=== PATIENT | female | born 1945 | race Caucasian/White ===

== ENCOUNTER 2019-02-10 12:59 | Outpatient (CLI) | payer MEDICARE ==
[2019-02-10 18:11] LABS: HB2 TOTAL 13.5 g/dL; HEMOGLOBIN A1C 0.64 g/dL; HEMOGLOBIN A1C % 6.5 % (4.6-6.2)
== END 2019-02-10 13:00 | disposition home or self-care (01) ==
LOC: LAB.S 12:59
PROVIDERS: ATTEND Family Medicine
DX: E11.9 Type 2 diabetes mellitus without complications (principal); I48.2 Chronic atrial fibrillation
CPT/HCPCS: 36415; 83036; 85610

== ENCOUNTER 2019-02-18 13:05 | Outpatient (CLI) | payer MEDICARE | END 2019-02-18 13:06 | disposition home or self-care (01) | LOC: LAB.S 13:05 | PROVIDERS: ATTEND Family Medicine | DX: E11.9 Type 2 diabetes mellitus without complications (principal); I48.2 Chronic atrial fibrillation | CPT/HCPCS: 36415; 83036; 85610 ==

== ENCOUNTER 2019-03-10 14:22 | Outpatient (CLI) | payer MEDICARE | END 2019-03-10 14:23 | disposition home or self-care (01) | LOC: LAB.S 14:22 | PROVIDERS: ATTEND Family Medicine | DX: I48.20 Chronic atrial fibrillation, unspecified (principal) | CPT/HCPCS: 85610 ==

== ENCOUNTER 2019-03-17 14:56 | Outpatient (CLI) | payer MEDICARE | END 2019-03-17 14:57 | disposition home or self-care (01) | LOC: LAB.S 14:56 | PROVIDERS: ATTEND Family Medicine | DX: I48.20 Chronic atrial fibrillation, unspecified (principal) | CPT/HCPCS: 85610 ==

== ENCOUNTER 2019-03-24 14:42 | Outpatient (CLI) | payer MEDICARE | END 2019-03-24 14:43 | disposition home or self-care (01) | LOC: LAB.S 14:42 | PROVIDERS: ATTEND Family Medicine | DX: I48.91 Unspecified atrial fibrillation (principal) | CPT/HCPCS: 85610 ==

== ENCOUNTER 2019-03-31 13:43 | Outpatient (CLI) | payer MEDICARE | END 2019-03-31 13:44 | disposition home or self-care (01) | LOC: LAB.S 13:43 | PROVIDERS: ATTEND Family Medicine | DX: I48.91 Unspecified atrial fibrillation (principal) | CPT/HCPCS: 85610 ==

== ENCOUNTER 2019-04-07 14:49 | Outpatient (CLI) | payer MEDICARE | END 2019-04-07 14:50 | disposition home or self-care (01) | LOC: LAB.S 14:49 | PROVIDERS: ATTEND Family Medicine | DX: I48.91 Unspecified atrial fibrillation (principal) | CPT/HCPCS: 85610 ==

== ENCOUNTER 2019-04-21 14:31 | Outpatient (CLI) | payer MEDICARE | END 2019-04-21 14:32 | disposition home or self-care (01) | LOC: LAB.S 14:31 | PROVIDERS: ATTEND Family Medicine | DX: I48.91 Unspecified atrial fibrillation (principal) | CPT/HCPCS: 85610 ==

== ENCOUNTER 2019-04-30 09:00 | Outpatient (CLI) | payer MEDICARE | END 2019-04-30 09:01 | disposition home or self-care (01) | LOC: LAB.R 09:00 | PROVIDERS: ATTEND Registered Nurse | DX: Z12.11 Encounter for screening for malignant neoplasm of colon (principal) | CPT/HCPCS: 82270 ==

== ENCOUNTER 2019-05-05 13:54 | Outpatient (CLI) | payer MEDICARE | END 2019-05-05 13:55 | disposition home or self-care (01) | LOC: LAB.S 13:54 | PROVIDERS: ATTEND Family Medicine | DX: I48.91 Unspecified atrial fibrillation (principal) | CPT/HCPCS: 85610 ==

== ENCOUNTER 2019-06-03 13:50 | Outpatient (CLI) | payer MEDICARE | END 2019-06-03 13:51 | disposition home or self-care (01) | LOC: LAB.S 13:50 | PROVIDERS: ATTEND Family Medicine | DX: I48.91 Unspecified atrial fibrillation (principal) | CPT/HCPCS: 85610 ==

== ENCOUNTER 2019-06-16 11:48 | Outpatient (CLI) | payer MEDICARE | END 2019-06-16 11:49 | disposition home or self-care (01) | LOC: LAB.S 11:48 | PROVIDERS: ATTEND Family Medicine | DX: I48.91 Unspecified atrial fibrillation (principal) | CPT/HCPCS: 85610 ==

== ENCOUNTER 2019-06-25 13:40 | Outpatient (CLI) | payer MEDICARE | END 2019-06-25 13:41 | disposition home or self-care (01) | LOC: LAB.S 13:40 | PROVIDERS: ATTEND Family Medicine | DX: I48.91 Unspecified atrial fibrillation (principal) | CPT/HCPCS: 85610 ==

== ENCOUNTER 2019-07-09 14:05 | Outpatient (CLI) | payer MEDICARE | END 2019-07-09 14:06 | disposition home or self-care (01) | LOC: LAB.S 14:05 | PROVIDERS: ATTEND Family Medicine | DX: I48.91 Unspecified atrial fibrillation (principal) | CPT/HCPCS: 85610 ==

== ENCOUNTER 2019-09-02 09:07 | Outpatient (CLI) | payer MEDICARE ==
[2019-09-02 11:55] LABS: BASOPHILS % (AUTO) 0.5 %; EOSINOPHILS # (AUTO) 0.1 10^3/uL (0.0-0.7); EOSINOPHILS % (AUTO) 2.4 %; HGB - HEMOGLOBIN 13.4 g/dL (12.0-16.0); LYMPHOCYTES # (AUTO) 1.3 10^3/uL (1.5-3.5); LYMPHOCYTES % (AUTO) 30.8 %; MEAN CORPUSCULAR HEMOGLOBIN 31.7 pg (27.0-31.0); MEAN CORPUSCULAR HGB CONC 31.8 g/dL (32.0-36.0); MEAN CORPUSCULAR VOLUME 99.8 fL (81.0-99.0); MEAN PLATELET VOLUME 10.2 fL (7.9-10.8); MONOCYTES # (AUTO) 0.5 10^3/uL (0.0-1.0); MONOCYTES % (AUTO) 10.6 %; NEUTROPHILS # (AUTO) 2.4 10^3/uL (1.5-6.6); NEUTROPHILS % (AUTO) 55.5 %; PLT - PLATELET COUNT 225 10^3/uL (130-450); RED BLOOD COUNT 4.23 10^6/uL (4.20-5.40); RED CELL DISTRIBUTION WIDTH 12.7 % (12.0-15.0); WHITE BLOOD COUNT 4.3 x10^3/uL (4.8-10.8)
[2019-09-02 12:10] LABS: HB2 TOTAL 13.5 g/dL; HEMOGLOBIN A1C 0.74 g/dL; HEMOGLOBIN A1C % 7.2 % (4.6-6.2)
[2019-09-02 12:12] LABS: ALBUMIN 4.1 g/dL (3.2-5.5); ALBUMIN/GLOBULIN RATIO 1.2 (1.0-2.2); ALKALINE PHOSPHATASE 58 IU/L (42-121); ALT ALANINE AMINOTRANSFERASE 25 IU/L (10-60); AST ASPARTATE AMINOTRANSFERASE 23 IU/L (10-42); BILIRUBIN,TOTAL 0.7 mg/dL (0.2-1.0); BUN - BLOOD UREA NITROGEN 19 mg/dL (6-20); CALCIUM 9.4 mg/dL (8.5-10.3); CARBON DIOXIDE - CO2 27 mmol/L (21-32); CHLORIDE 106 mmol/L (101-111); CHOL/HDL RATIO 2.9 (<4.4); CHOLESTEROL 134 mg/dL; CREATININE 0.8 mg/dL (0.4-1.0); CREATININE,URINE 163.8 mg/dL; GLUCOSE 126 mg/dL (70-100); HDL CHOLESTEROL 46 mg/dL; LDL CHOLESTEROL,CALCULATED 53 mg/dL; LDL/HDL RATIO 1.2 (<4.4); MICROALBUM/CREATININE RATIO,UR 6.7 ug/mg (<30.0); MICROALBUMIN,URINE 1.1 mg/dL (0-300.0); SODIUM 141 mmol/L (135-145); TOTAL PROTEIN 7.6 g/dL (6.7-8.2); VLDL CHOLESTEROL 35 mg/dL
[2019-09-02 12:18] LABS: INR 2.9 (0.8-1.2)
== END 2019-09-02 23:59 | disposition home or self-care (01) ==
LOC: LAB.WCP 09:07
PROVIDERS: ATTEND Registered Nurse
DX: I10 Essential (primary) hypertension (principal); E11.9 Type 2 diabetes mellitus without complications; I48.20 Chronic atrial fibrillation, unspecified; Z79.01 Long term (current) use of anticoagulants
CPT/HCPCS: 36415; 80053; 80061; 82043; 82570; 83036; 83721; 84443; 85025; 85610

== ENCOUNTER 2019-10-13 08:00 | Outpatient (CLI) | payer MEDICARE | END 2019-10-13 23:59 | disposition home or self-care (01) | LOC: LAB.WCP 08:00 | PROVIDERS: ATTEND Registered Nurse | DX: I48.21 Permanent atrial fibrillation (principal); Z79.01 Long term (current) use of anticoagulants ==

== ENCOUNTER 2019-11-10 11:01 | Outpatient (CLI) | payer MEDICARE | END 2019-11-10 11:02 | disposition home or self-care (01) | LOC: LAB.S 11:01 | PROVIDERS: ATTEND Registered Nurse | DX: Z79.01 Long term (current) use of anticoagulants (principal) | CPT/HCPCS: 85610 ==

== ENCOUNTER 2019-12-08 14:42 | Outpatient (CLI) | payer MEDICARE | END 2019-12-08 14:43 | disposition home or self-care (01) | LOC: LAB.S 14:42 | PROVIDERS: ATTEND Registered Nurse | DX: Z79.01 Long term (current) use of anticoagulants (principal) | CPT/HCPCS: 85610 ==

== ENCOUNTER 2020-01-11 16:45 | Outpatient (CLI) | payer MEDICARE | END 2020-01-11 16:46 | disposition home or self-care (01) | LOC: LAB.S 16:45 | PROVIDERS: ATTEND Registered Nurse | DX: I48.20 Chronic atrial fibrillation, unspecified (principal); Z79.01 Long term (current) use of anticoagulants | CPT/HCPCS: 85610 ==

== ENCOUNTER 2020-02-15 16:16 | Outpatient (CLI) | payer MEDICARE | END 2020-02-15 16:17 | disposition home or self-care (01) | LOC: LAB.S 16:16 | PROVIDERS: ATTEND Registered Nurse | DX: Z79.01 Long term (current) use of anticoagulants (principal) | CPT/HCPCS: 85610 ==

== ENCOUNTER 2020-03-15 11:49 | Outpatient (CLI) | payer MEDICARE | END 2020-03-15 11:50 | disposition home or self-care (01) | LOC: LAB.S 11:49 | PROVIDERS: ATTEND Registered Nurse | DX: Z79.01 Long term (current) use of anticoagulants (principal) | CPT/HCPCS: 85610 ==

== ENCOUNTER 2020-04-18 15:43 | Outpatient (CLI) | payer MEDICARE | END 2020-04-18 15:44 | disposition home or self-care (01) | LOC: LAB.S 15:43 | PROVIDERS: ATTEND Registered Nurse | DX: Z79.01 Long term (current) use of anticoagulants (principal) | CPT/HCPCS: 85610 ==

== ENCOUNTER 2020-05-11 17:36 | Outpatient (CLI) | payer MEDICARE ==
[2020-05-11 20:03] LABS: BASOPHILS % (AUTO) 0.2 %; EOSINOPHILS # (AUTO) 0.1 10^3/uL (0.0-0.7); HGB - HEMOGLOBIN 12.5 g/dL (12.0-16.0); LYMPHOCYTES # (AUTO) 1.2 10^3/uL (1.5-3.5); LYMPHOCYTES % (AUTO) 22.9 %; MEAN CORPUSCULAR HEMOGLOBIN 30.9 pg (27.0-31.0); MEAN CORPUSCULAR HGB CONC 30.7 g/dL (32.0-36.0); MEAN CORPUSCULAR VOLUME 100.7 fL (81.0-99.0); MEAN PLATELET VOLUME 10.7 fL (7.9-10.8); MONOCYTES # (AUTO) 0.5 10^3/uL (0.0-1.0); MONOCYTES % (AUTO) 9.1 %; NEUTROPHILS # (AUTO) 3.5 10^3/uL (1.5-6.6); NEUTROPHILS % (AUTO) 66.6 %; PLT - PLATELET COUNT 215 10^3/uL (130-450); RED BLOOD COUNT 4.04 10^6/uL (4.20-5.40); RED CELL DISTRIBUTION WIDTH 12.4 % (12.0-15.0); WHITE BLOOD COUNT 5.2 x10^3/uL (4.8-10.8)
[2020-05-11 20:17] LABS: BUN - BLOOD UREA NITROGEN 25 mg/dL (6-20); CALCIUM 9.5 mg/dL (8.5-10.3); CARBON DIOXIDE - CO2 27 mmol/L (21-32); CHLORIDE 105 mmol/L (101-111); GLUCOSE 116 mg/dL (70-100); SODIUM 141 mmol/L (135-145)
[2020-05-11 21:14] LABS: CRP - C-REACTIVE PROTEIN < 1.0 mg/dL (0-1.0)
== END 2020-05-11 17:37 | disposition home or self-care (01) ==
LOC: LAB.S 17:36
PROVIDERS: ATTEND Registered Nurse
DX: R53.83 Other fatigue (principal); E66.01 Morbid (severe) obesity due to excess calories; E11.9 Type 2 diabetes mellitus without complications; I48.20 Chronic atrial fibrillation, unspecified; Z79.01 Long term (current) use of anticoagulants
CPT/HCPCS: 36415; 80048; 84484; 85025; 86140

== ENCOUNTER 2020-05-17 15:53 | Outpatient (CLI) | payer MEDICARE | END 2020-05-17 15:54 | disposition home or self-care (01) | LOC: LAB.S 15:53 | PROVIDERS: ATTEND Registered Nurse | DX: Z79.01 Long term (current) use of anticoagulants (principal) | CPT/HCPCS: 85610 ==

== ENCOUNTER 2020-06-19 15:33 | Outpatient (CLI) | payer MEDICARE ==
[2020-06-19 20:43] LABS: HEMOGLOBIN A1c% 7.8 % (4.27-6.07)
[2020-06-19 20:48] LABS: CALCIUM 9.6 mg/dL (8.5-10.3); CREATININE 0.8 mg/dL (0.4-1.0)
[2020-06-19 20:50] LABS: CREATININE,URINE 62.5 mg/dL; MICROALBUMIN,URINE 0.5 mg/dL (0-300.0)
== END 2020-06-19 15:34 | disposition home or self-care (01) ==
LOC: LAB.S 15:33
PROVIDERS: ATTEND Registered Nurse
DX: Z79.01 Long term (current) use of anticoagulants (principal); E11.9 Type 2 diabetes mellitus without complications; I10 Essential (primary) hypertension; R53.83 Other fatigue
CPT/HCPCS: 36415; 80048; 82043; 82570; 83036; 85610

== ENCOUNTER 2020-06-20 10:12 | Outpatient (CLI) | payer MEDICARE | END 2020-06-20 10:13 | disposition home or self-care (01) | LOC: DI 10:12 | PROVIDERS: ATTEND Registered Nurse | DX: I48.91 Unspecified atrial fibrillation (principal); I51.7 Cardiomegaly | CPT/HCPCS: 93306 ==

== ENCOUNTER 2020-06-28 08:00 | Outpatient (CLI) | payer MEDICARE | END 2020-06-28 23:59 | disposition home or self-care (01) | LOC: LAB.F 08:00 | PROVIDERS: ATTEND Registered Nurse | DX: Z79.01 Long term (current) use of anticoagulants (principal) ==

== ENCOUNTER 2020-07-04 08:00 | Outpatient (CLI) | payer MEDICARE | END 2020-07-04 23:59 | disposition home or self-care (01) | LOC: LAB.F 08:00 | PROVIDERS: ATTEND Registered Nurse | DX: Z79.01 Long term (current) use of anticoagulants (principal) ==

== ENCOUNTER 2020-07-19 13:58 | Outpatient (CLI) | payer MEDICARE ==
--- NOTE | 2020-07-20 16:51 | Mammography Report ---
BILATERAL DIGITAL SCREENING MAMMOGRAM 3D/2D: 07/19/2020 CLINICAL: Routine screening. Comparison is made to exams dated: 12/15/2018 mammogram, 09/27/2016 mammogram, and 10/08/2014 mammogram - [facility]. The tissue of both breasts is predominantly fatty. There is a benign area of fat necrosis in the left breast. There also are benign vascular calcificat ions in both breasts. No significant masses, calcifications, or other findings are seen in either breast. There has been no significant interval change. IMPRESSION: BENIGN There is no mammographic evidence of malignancy. A 1 year screening mammogram is recommended. This exam was interpreted at Station ID: [id number]. NOTE: For mammograms, a report in lay terms will be sent to the patient. Approximately 15% of breast malignancies will not be visualized mammographically. In the management of a palpable breast mass, a negative mammogram must not discourage biopsy of a clinically suspicious lesion. Electronically Signed By: Adiel El M.D. [email or web address]:07/20/2020 07:49:25 ACR BI-RADS Category 2: Benign Finding(s) 3342F PARENCHYMAL PATTERN: (F) - The breast(s) demonstrate(s) diffuse fatty replacement. BI-RADS CATEGORY: (2) - 2 RECOMMENDATION: (ANNUAL) - Recommend routine annual screening mammography. [id number] 1 year screening LATERALITY: (B)
== END 2020-07-19 13:59 | disposition home or self-care (01) ==
LOC: DI.S 13:58
DX: Z12.31 Encounter for screening mammogram for malignant neoplasm of breast (principal)

== ENCOUNTER 2020-08-01 11:25 | Outpatient (CLI) | payer MEDICARE | END 2020-08-01 11:26 | disposition home or self-care (01) | LOC: LAB.S 11:25 | PROVIDERS: ATTEND Registered Nurse | DX: Z79.01 Long term (current) use of anticoagulants (principal) | CPT/HCPCS: 85610 ==

== ENCOUNTER 2020-08-08 15:44 | Outpatient (CLI) | payer MEDICARE | END 2020-08-08 15:45 | disposition home or self-care (01) | LOC: LAB.S 15:44 | PROVIDERS: ATTEND Registered Nurse | DX: Z79.01 Long term (current) use of anticoagulants (principal) | CPT/HCPCS: 85610 ==

== ENCOUNTER 2020-08-15 12:16 | Outpatient (CLI) | payer MEDICARE | END 2020-08-15 12:17 | disposition home or self-care (01) | LOC: LAB.S 12:16 | PROVIDERS: ATTEND Registered Nurse | DX: Z79.01 Long term (current) use of anticoagulants (principal) | CPT/HCPCS: 85610 ==

== ENCOUNTER 2020-08-23 11:31 | Outpatient (CLI) | payer MEDICARE | END 2020-08-23 11:32 | disposition home or self-care (01) | LOC: LAB.S 11:31 | PROVIDERS: ATTEND Registered Nurse | DX: Z79.01 Long term (current) use of anticoagulants (principal) | CPT/HCPCS: 85610 ==

== ENCOUNTER 2020-09-21 08:23 | Outpatient (CLI) | payer MEDICARE ==
[2020-09-21 15:13] LABS: BASOPHILS % (AUTO) 0.6 %; EOSINOPHILS # (AUTO) 0.1 10^3/uL (0.0-0.7); EOSINOPHILS % (AUTO) 2.8 %; HCT - HEMATOCRIT 40.7 % (37.0-47.0); HGB - HEMOGLOBIN 13.2 g/dL (12.0-16.0); LYMPHOCYTES # (AUTO) 1.1 10^3/uL (1.5-3.5); LYMPHOCYTES % (AUTO) 29.8 %; MEAN CORPUSCULAR HEMOGLOBIN 32.1 pg (27.0-31.0); MEAN CORPUSCULAR HGB CONC 32.4 g/dL (32.0-36.0); MEAN PLATELET VOLUME 10.7 fL (7.9-10.8); MONOCYTES # (AUTO) 0.4 10^3/uL (0.0-1.0); MONOCYTES % (AUTO) 11.3 %; NEUTROPHILS % (AUTO) 55.2 %; PLT - PLATELET COUNT 206 10^3/uL (130-450); RED BLOOD COUNT 4.11 10^6/uL (4.20-5.40); RED CELL DISTRIBUTION WIDTH 12.7 % (12.0-15.0); WHITE BLOOD COUNT 3.6 x10^3/uL (4.8-10.8)
[2020-09-21 15:52] LABS: THYROID STIMULATING HORMONE 5.84 uIU/mL (0.34-5.60)
[2020-09-21 16:02] LABS: CREATININE,URINE 145.9 mg/dL; MICROALBUM/CREATININE RATIO,UR 2.7 ug/mg (<30.0); MICROALBUMIN,URINE 0.4 mg/dL (0-300.0)
[2020-09-21 16:20] LABS: ALBUMIN 4.2 g/dL (3.2-5.5); ALBUMIN/GLOBULIN RATIO 1.4 (1.0-2.2); ALKALINE PHOSPHATASE 78 IU/L (42-121); ALT ALANINE AMINOTRANSFERASE 27 IU/L (10-60); AST ASPARTATE AMINOTRANSFERASE 23 IU/L (10-42); BILIRUBIN,TOTAL 0.5 mg/dL (0.2-1.0); BUN - BLOOD UREA NITROGEN 26 mg/dL (6-20); CALCIUM 9.2 mg/dL (8.5-10.3); CARBON DIOXIDE - CO2 26 mmol/L (21-32); CHLORIDE 103 mmol/L (101-111); CHOL/HDL RATIO 3.1 (<4.4); CHOLESTEROL 139 mg/dL; CREATININE 0.9 mg/dL (0.4-1.0); GFR - MDRD 61 (>89); GLUCOSE 168 mg/dL (70-100); HDL CHOLESTEROL 45 mg/dL; LDL CHOLESTEROL,CALCULATED 68 mg/dL; LDL/HDL RATIO 1.5 (<4.4); POTASSIUM 4.1 mmol/L (3.5-5.0); SODIUM 138 mmol/L (135-145); TOTAL PROTEIN 7.1 g/dL (6.7-8.2); TRIGLYCERIDES 129 mg/dL; VLDL CHOLESTEROL 26 mg/dL
[2020-09-21 19:36] LABS: ESTIMATED AVERAGE GLUCOSE 192 mg/dL (70-100); HEMOGLOBIN A1c% 8.3 % (4.27-6.07)
== END 2020-09-21 08:24 | disposition home or self-care (01) ==
LOC: LAB.S 08:23
PROVIDERS: ATTEND Registered Nurse
DX: E78.5 Hyperlipidemia, unspecified (principal); E66.01 Morbid (severe) obesity due to excess calories; E11.9 Type 2 diabetes mellitus without complications; I10 Essential (primary) hypertension; R53.83 Other fatigue; Z79.01 Long term (current) use of anticoagulants
CPT/HCPCS: 36415; 80053; 80061; 82043; 82570; 83036; 83721; 84443; 85025; 85610

== ENCOUNTER 2020-10-23 10:38 | Outpatient (CLI) | payer MEDICARE | END 2020-10-23 10:39 | disposition home or self-care (01) | LOC: LAB.S 10:38 | PROVIDERS: ATTEND Registered Nurse | DX: Z79.01 Long term (current) use of anticoagulants (principal) | CPT/HCPCS: 36416; 85610 ==

== ENCOUNTER 2020-11-07 16:22 | Outpatient (CLI) | payer MEDICARE | END 2020-11-07 16:23 | disposition home or self-care (01) | LOC: COV 16:22 | PROVIDERS: ATTEND Internal Medicine Cardiovascular Disease | DX: Z01.812 Encounter for preprocedural laboratory examination (principal); Z20.822 Contact with and (suspected) exposure to COVID-19 ==

== ENCOUNTER 2020-11-14 16:52 | Outpatient (CLI) | payer MEDICARE | END 2020-11-14 16:53 | disposition home or self-care (01) | LOC: COV 16:52 | PROVIDERS: ATTEND Internal Medicine Cardiovascular Disease | DX: Z01.812 Encounter for preprocedural laboratory examination (principal); Z20.822 Contact with and (suspected) exposure to COVID-19 ==

== ENCOUNTER 2020-11-22 16:18 | Outpatient (CLI) | payer MEDICARE | END 2020-11-22 16:19 | disposition home or self-care (01) | LOC: LAB.S 16:18 | PROVIDERS: ATTEND Registered Nurse | DX: Z79.01 Long term (current) use of anticoagulants (principal) | CPT/HCPCS: 85610 ==

== ENCOUNTER 2020-12-07 15:14 | Outpatient (CLI) | payer MEDICARE ==
[2020-12-07 20:04] LABS: CALCIUM 9.3 mg/dL (8.5-10.3); CREATININE 0.7 mg/dL (0.4-1.0); POTASSIUM 4.3 mmol/L (3.5-5.0)
[2020-12-07 20:23] LABS: THYROID STIMULATING HORMONE 2.89 uIU/mL (0.34-5.60)
[2020-12-07 20:32] LABS: ESTIMATED AVERAGE GLUCOSE 177 mg/dL (70-100); HEMOGLOBIN A1c% 7.8 % (4.27-6.07)
== END 2020-12-07 15:15 | disposition home or self-care (01) ==
LOC: LAB.S 15:14
PROVIDERS: ATTEND Nurse Practitioner
DX: E11.65 Type 2 diabetes mellitus with hyperglycemia (principal); E03.9 Hypothyroidism, unspecified; Z79.4 Long term (current) use of insulin
CPT/HCPCS: 36415; 80048; 83036; 84443

== ENCOUNTER 2020-12-20 14:47 | Outpatient (CLI) | payer MEDICARE | END 2020-12-20 14:48 | disposition home or self-care (01) | LOC: LAB.S 14:47 | PROVIDERS: ATTEND Registered Nurse | DX: Z79.01 Long term (current) use of anticoagulants (principal) | CPT/HCPCS: 36416; 85610 ==

== ENCOUNTER 2021-01-30 14:47 | Outpatient (CLI) | payer MEDICARE ==
[2021-01-30 20:48] LABS: ESTIMATED AVERAGE GLUCOSE 163 mg/dL (70-100); HEMOGLOBIN A1c% 7.3 % (4.27-6.07)
== END 2021-01-30 14:48 | disposition home or self-care (01) ==
LOC: LAB.S 14:47
PROVIDERS: ATTEND Registered Nurse
DX: Z79.01 Long term (current) use of anticoagulants (principal); E11.65 Type 2 diabetes mellitus with hyperglycemia; Z79.4 Long term (current) use of insulin
CPT/HCPCS: 36415; 83036; 85610

== ENCOUNTER 2021-02-14 15:45 | Outpatient (CLI) | payer MEDICARE | END 2021-02-14 15:46 | disposition home or self-care (01) | LOC: LAB.S 15:45 | PROVIDERS: ATTEND Registered Nurse | DX: Z79.01 Long term (current) use of anticoagulants (principal) | CPT/HCPCS: 36416; 85610 ==

== ENCOUNTER 2021-03-27 12:26 | Outpatient (CLI) | payer MEDICARE | END 2021-03-27 12:27 | disposition home or self-care (01) | LOC: LAB.S 12:26 | PROVIDERS: ATTEND Registered Nurse | DX: Z79.01 Long term (current) use of anticoagulants (principal) | CPT/HCPCS: 36416; 85610 ==

== ENCOUNTER 2021-04-30 16:37 | Outpatient (CLI) | payer MEDICARE | END 2021-04-30 16:38 | disposition home or self-care (01) | LOC: LAB.S 16:37 | PROVIDERS: ATTEND Registered Nurse | DX: Z79.01 Long term (current) use of anticoagulants (principal) | CPT/HCPCS: 36416; 85610 ==

== ENCOUNTER 2021-06-12 12:55 | Outpatient (CLI) | payer MEDICARE | END 2021-06-12 12:56 | disposition home or self-care (01) | LOC: LAB.S 12:55 | PROVIDERS: ATTEND Registered Nurse | DX: Z79.01 Long term (current) use of anticoagulants (principal) | CPT/HCPCS: 36416; 85610 ==

== ENCOUNTER 2021-07-16 15:03 | Outpatient (CLI) | payer MEDICARE | END 2021-07-16 15:04 | disposition home or self-care (01) | LOC: LAB.S 15:03 | PROVIDERS: ATTEND Registered Nurse | DX: Z79.01 Long term (current) use of anticoagulants (principal) | CPT/HCPCS: 36416; 85610 ==

== ENCOUNTER 2021-08-21 13:32 | Outpatient (CLI) | payer MEDICARE | END 2021-08-21 13:33 | disposition home or self-care (01) | LOC: LAB.S 13:32 | PROVIDERS: ATTEND Registered Nurse | DX: Z79.01 Long term (current) use of anticoagulants (principal) | CPT/HCPCS: 36416; 85610 ==

== ENCOUNTER 2021-09-20 09:05 | Outpatient (CLI) | payer MEDICARE ==
[2021-09-20 15:35] LABS: BASOPHILS % (AUTO) 0.3 %; EOSINOPHILS # (AUTO) 0.1 10^3/uL (0.0-0.7); EOSINOPHILS % (AUTO) 2.3 %; HCT - HEMATOCRIT 40.2 % (37.0-47.0); LYMPHOCYTES # (AUTO) 1.2 10^3/uL (1.5-3.5); LYMPHOCYTES % (AUTO) 31.2 %; MEAN CORPUSCULAR HEMOGLOBIN 32.2 pg (27.0-31.0); MEAN CORPUSCULAR HGB CONC 32.3 g/dL (32.0-36.0); MEAN CORPUSCULAR VOLUME 99.5 fL (81.0-99.0); MEAN PLATELET VOLUME 10.2 fL (7.9-10.8); MONOCYTES # (AUTO) 0.5 10^3/uL (0.0-1.0); MONOCYTES % (AUTO) 11.3 %; NEUTROPHILS # (AUTO) 2.2 10^3/uL (1.5-6.6); NEUTROPHILS % (AUTO) 54.6 %; PLT - PLATELET COUNT 218 10^3/uL (130-450); RED BLOOD COUNT 4.04 10^6/uL (4.20-5.40); RED CELL DISTRIBUTION WIDTH 12.4 % (12.0-15.0)
[2021-09-20 15:40] LABS: CREATININE,URINE 116.6 mg/dL; MICROALBUM/CREATININE RATIO,UR 5.1 ug/mg (<30.0); MICROALBUMIN,URINE 0.6 mg/dL (0-300.0)
[2021-09-20 15:50] LABS: ALBUMIN 3.8 g/dL (3.2-5.5); ALBUMIN/GLOBULIN RATIO 1.3 (1.0-2.2); ALKALINE PHOSPHATASE 64 IU/L (42-121); ALT ALANINE AMINOTRANSFERASE 21 IU/L (10-60); AST ASPARTATE AMINOTRANSFERASE 18 IU/L (10-42); BILIRUBIN,TOTAL 0.8 mg/dL (0.2-1.0); BUN - BLOOD UREA NITROGEN 24 mg/dL (6-20); CALCIUM 9.6 mg/dL (8.5-10.3); CARBON DIOXIDE - CO2 28 mmol/L (21-32); CHLORIDE 105 mmol/L (101-111); CHOL/HDL RATIO 2.8 (<4.4); CHOLESTEROL 120 mg/dL; CREATININE 0.8 mg/dL (0.4-1.0); GFR - MDRD 70 (>89); GLUCOSE 124 mg/dL (70-100); HDL CHOLESTEROL 43 mg/dL; LDL CHOLESTEROL,CALCULATED 58 mg/dL; LDL/HDL RATIO 1.3 (<4.4); POTASSIUM 4.6 mmol/L (3.5-5.0); SODIUM 141 mmol/L (135-145); TOTAL PROTEIN 6.8 g/dL (6.7-8.2); TRIGLYCERIDES 96 mg/dL; VLDL CHOLESTEROL 19 mg/dL
[2021-09-20 16:19] LABS: THYROID STIMULATING HORMONE 3.52 uIU/mL (0.34-5.60)
== END 2021-09-20 09:06 | disposition home or self-care (01) ==
LOC: LAB.S 09:05
PROVIDERS: ATTEND Registered Nurse
DX: Z79.01 Long term (current) use of anticoagulants (principal); E11.9 Type 2 diabetes mellitus without complications; E78.5 Hyperlipidemia, unspecified; E03.9 Hypothyroidism, unspecified; I10 Essential (primary) hypertension
CPT/HCPCS: 36415; 80053; 80061; 81599; 82043; 82570; 83036; 83721; 84443; 85025; 85610

== ENCOUNTER 2021-11-08 08:00 | Outpatient (CLI) | payer MEDICARE | END 2021-11-08 23:59 | disposition home or self-care (01) | LOC: LAB.S 08:00 | PROVIDERS: ATTEND Registered Nurse | DX: Z79.01 Long term (current) use of anticoagulants (principal) | CPT/HCPCS: 36416; 85610 ==

== ENCOUNTER 2021-11-26 11:12 | Outpatient (CLI) | payer MEDICARE | END 2021-11-26 11:13 | disposition home or self-care (01) | LOC: LAB.S 11:12 | PROVIDERS: ATTEND Registered Nurse | DX: Z79.01 Long term (current) use of anticoagulants (principal) | CPT/HCPCS: 36416; 85610 ==

== ENCOUNTER 2022-03-14 13:35 | Outpatient (CLI) | payer MEDICARE | END 2022-03-14 13:36 | disposition home or self-care (01) | LOC: LAB.S 13:35 | PROVIDERS: ATTEND Registered Nurse | DX: Z79.01 Long term (current) use of anticoagulants (principal) | CPT/HCPCS: 36416; 85610 ==

== ENCOUNTER 2022-05-07 13:22 | Outpatient (CLI) | payer MEDICARE ==
[2022-05-07 19:48] LABS: ALBUMIN 3.7 g/dL (3.2-5.5); BILIRUBIN,TOTAL 0.7 mg/dL (0.2-1.0); CALCIUM 9.5 mg/dL (8.5-10.3); POTASSIUM 4.2 mmol/L (3.5-5.0); TOTAL PROTEIN 7.4 g/dL (6.7-8.2)
[2022-05-07 20:28] LABS: ESTIMATED AVERAGE GLUCOSE 160 mg/dL (70-100); HEMOGLOBIN A1c% 7.2 % (4.27-6.07)
== END 2022-05-07 13:23 | disposition home or self-care (01) ==
LOC: LAB.S 13:22
PROVIDERS: ATTEND Registered Nurse
DX: Z79.01 Long term (current) use of anticoagulants (principal); I10 Essential (primary) hypertension; E11.9 Type 2 diabetes mellitus without complications
CPT/HCPCS: 36415; 80053; 83036; 85610

== ENCOUNTER 2022-06-07 14:55 | Outpatient (CLI) | payer MEDICARE | END 2022-06-07 14:56 | disposition home or self-care (01) | LOC: LAB.S 14:55 | PROVIDERS: ATTEND Registered Nurse | DX: Z79.01 Long term (current) use of anticoagulants (principal) | CPT/HCPCS: 36416; 85610 ==

== ENCOUNTER 2022-07-26 13:50 | Outpatient (CLI) | payer MEDICARE | END 2022-07-26 13:51 | disposition home or self-care (01) | LOC: LAB.S 13:50 | PROVIDERS: ATTEND Registered Nurse | DX: Z79.01 Long term (current) use of anticoagulants (principal) | CPT/HCPCS: 36416; 85610 ==

== ENCOUNTER 2022-09-02 14:02 | Outpatient (CLI) | payer MEDICARE | END 2022-09-02 14:03 | disposition home or self-care (01) | LOC: LAB.S 14:02 | PROVIDERS: ATTEND Registered Nurse | DX: Z79.01 Long term (current) use of anticoagulants (principal) | CPT/HCPCS: 36416; 85610 ==

== ENCOUNTER 2022-10-15 13:42 | Outpatient (CLI) | payer MEDICARE | END 2022-10-15 13:43 | disposition home or self-care (01) | LOC: LAB.S 13:42 | PROVIDERS: ATTEND Registered Nurse | DX: Z79.01 Long term (current) use of anticoagulants (principal) | CPT/HCPCS: 36416; 85610 ==

== ENCOUNTER 2022-11-05 14:06 | Outpatient (CLI) | payer MEDICARE ==
--- NOTE | 2022-11-06 10:07 | Mammography Report ---
BILATERAL DIGITAL SCREENING MAMMOGRAM 3D/2D WITH EXAGGERATED CC: 11/05/2022 CLINICAL: Routine screening. Comparison is made to exams dated: 07/19/2020 mammogram - [facility], 12/15/2018 [facility], and 09/27/2016 mammogram - [facility]. Both breasts are almost entirely fatty (category a/<25% glandular tissue). There are benign vascular calcifications in both breasts. No significant masses, calcifications, or other findings are seen in either breast. There has been no significant interval change. IMPRESSION: BENIGN There is no mammographic evidence of malignancy. A 1 year screening mammogram is recommended. Based on the Tyrer Cuzick model (a risk assessment model) the patients lifetime risk is 2.4% and her 10 year risk is 2.4%. According to the ACR, ACS, and NCCN guidelines, an annual breast MRI exam bryan g with mammogram is recommended if the patients lifetime risk is 20% or greater. This exam was interpreted at Station ID: [id number]. NOTE: For mammograms, a report in lay terms will be sent to the patient. Approximately 15% of breast malignancies will not be visualized mammographically. In the management of a palpable breast mass, a negative mammogram must not discourage biopsy of a clinically suspicious lesion. Electronically Signed By: Rasheeda metz/breezy:11/05/2022 17:27:55 letter sent: No_Letter ACR BI-RADS Category 2: Benign Finding(s) 3342F PARENCHYMAL PATTERN: (F) - The breast(s) demonstrate(s) diffuse fatty replacement. BI-RADS CATEGORY: (2) - 2 Mammogram [id number] 1 year screening LATERALITY: (B)
== END 2022-11-05 14:07 | disposition home or self-care (01) ==
LOC: DI.S 14:06
DX: Z12.31 Encounter for screening mammogram for malignant neoplasm of breast (principal)

== ENCOUNTER 2022-12-05 13:14 | Outpatient (CLI) | payer MEDICARE | END 2022-12-05 13:15 | disposition home or self-care (01) | LOC: LAB.S 13:14 | PROVIDERS: ATTEND Registered Nurse | DX: Z79.01 Long term (current) use of anticoagulants (principal) | CPT/HCPCS: 36416; 85610 ==

== ENCOUNTER 2023-01-16 08:51 | Outpatient (CLI) | payer MEDICARE ==
[2023-01-16 14:27] LABS: BASOPHILS % (AUTO) 0.5 %; EOSINOPHILS # (AUTO) 0.1 10^3/uL (0.0-0.7); EOSINOPHILS % (AUTO) 1.9 %; HCT - HEMATOCRIT 40.1 % (37.0-47.0); HGB - HEMOGLOBIN 12.7 g/dL (12.0-16.0); LYMPHOCYTES # (AUTO) 1.1 10^3/uL (1.5-3.5); LYMPHOCYTES % (AUTO) 29.9 %; MEAN CORPUSCULAR HEMOGLOBIN 31.1 pg (27.0-31.0); MEAN CORPUSCULAR HGB CONC 31.7 g/dL (32.0-36.0); MEAN PLATELET VOLUME 10.2 fL (7.9-10.8); MONOCYTES # (AUTO) 0.4 10^3/uL (0.0-1.0); MONOCYTES % (AUTO) 10.9 %; NEUTROPHILS # (AUTO) 2.1 10^3/uL (1.5-6.6); NEUTROPHILS % (AUTO) 55.7 %; PLT - PLATELET COUNT 209 10^3/uL (130-450); RED BLOOD COUNT 4.09 10^6/uL (4.20-5.40); RED CELL DISTRIBUTION WIDTH 12.9 % (12.0-15.0); WHITE BLOOD COUNT 3.7 x10^3/uL (4.8-10.8)
[2023-01-16 14:45] LABS: ALBUMIN 4.1 g/dL (3.2-5.5); ALBUMIN/GLOBULIN RATIO 1.5 (1.0-2.2); ALKALINE PHOSPHATASE 53 IU/L (42-121); ALT ALANINE AMINOTRANSFERASE 18 IU/L (10-60); AST ASPARTATE AMINOTRANSFERASE 18 IU/L (10-42); BILIRUBIN,TOTAL 0.6 mg/dL (0.2-1.0); BUN - BLOOD UREA NITROGEN 27 mg/dL (6-20); CALCIUM 9.4 mg/dL (8.5-10.3); CARBON DIOXIDE - CO2 26 mmol/L (21-32); CHLORIDE 109 mmol/L (101-111); CHOL/HDL RATIO 2.6 (<4.4); CHOLESTEROL 111 mg/dL; CREATININE 0.9 mg/dL (0.6-1.3); GFR - MDRD 61 (>89); GLUCOSE 112 mg/dL (74-104); HDL CHOLESTEROL 42 mg/dL; LDL CHOLESTEROL,CALCULATED 38 mg/dL; LDL/HDL RATIO 0.9 (<4.4); POTASSIUM 4.3 mmol/L (3.5-4.5); SODIUM 139 mmol/L (135-145); TOTAL PROTEIN 6.9 g/dL (6.4-8.9); TRIGLYCERIDES 153 mg/dL (48-352); VLDL CHOLESTEROL 31 mg/dL
[2023-01-16 14:54] LABS: THYROID STIMULATING HORMONE 3.94 uIU/mL (0.34-5.60)
[2023-01-16 20:26] LABS: ESTIMATED AVERAGE GLUCOSE 151 mg/dL (70-100); HEMOGLOBIN A1c% 6.9 % (4.27-6.07)
== END 2023-01-16 08:52 | disposition home or self-care (01) ==
LOC: LAB.S 08:51
PROVIDERS: ATTEND Registered Nurse
DX: I10 Essential (primary) hypertension (principal); Z79.01 Long term (current) use of anticoagulants; E11.9 Type 2 diabetes mellitus without complications; E78.5 Hyperlipidemia, unspecified; E03.9 Hypothyroidism, unspecified
CPT/HCPCS: 36415; 80053; 80061; 83036; 83721; 84443; 85025; 85610

== ENCOUNTER 2023-03-04 13:05 | Outpatient (CLI) | payer MEDICARE | END 2023-03-04 13:06 | disposition home or self-care (01) | LOC: LAB.S 13:05 | PROVIDERS: ATTEND Registered Nurse | DX: Z79.01 Long term (current) use of anticoagulants (principal) | CPT/HCPCS: 36416; 85610 ==

== ENCOUNTER 2023-05-28 11:48 | Outpatient (CLI) | payer MEDICARE | END 2023-05-28 11:49 | disposition home or self-care (01) | LOC: LAB.S 11:48 | PROVIDERS: ATTEND Registered Nurse | DX: Z51.81 Encounter for therapeutic drug level monitoring (principal); Z79.01 Long term (current) use of anticoagulants | CPT/HCPCS: 36416; 85610 ==

== ENCOUNTER 2023-07-03 08:55 | Outpatient (CLI) | payer MEDICARE ==
[2023-07-03 16:18] LABS: CALCIUM 9.4 mg/dL (8.5-10.3); CREATININE 0.9 mg/dL (0.6-1.3); POTASSIUM 4.2 mmol/L (3.5-4.5)
[2023-07-03 17:19] LABS: CREATININE,URINE 86.8 mg/dL; MICROALBUM/CREATININE RATIO,UR 11.5 ug/mg (<30.0)
[2023-07-03 20:06] LABS: ESTIMATED AVERAGE GLUCOSE 140 mg/dL (70-100); HEMOGLOBIN A1c% 6.5 % (4.27-6.07)
== END 2023-07-03 08:56 | disposition home or self-care (01) ==
LOC: LAB.S 08:55
PROVIDERS: ATTEND Registered Nurse
DX: E11.9 Type 2 diabetes mellitus without complications (principal); Z79.01 Long term (current) use of anticoagulants
CPT/HCPCS: 36415; 80048; 82043; 82570; 83036; 85610

== ENCOUNTER 2023-08-26 14:07 | Outpatient (CLI) | payer MEDICARE | END 2023-08-26 14:08 | disposition home or self-care (01) | LOC: LAB.S 14:07 | PROVIDERS: ATTEND Registered Nurse | DX: Z79.01 Long term (current) use of anticoagulants (principal) | CPT/HCPCS: 36416; 85610 ==

== ENCOUNTER 2023-09-01 08:00 | Outpatient (CLI) | payer MEDICARE | END 2023-09-01 23:59 | disposition home or self-care (01) | LOC: LAB.S 08:00 | PROVIDERS: ATTEND Emergency Medicine | DX: E11.621 Type 2 diabetes mellitus with foot ulcer (principal); L97.509 Non-pressure chronic ulcer of other part of unspecified foot with unspecified severity | CPT/HCPCS: 87070; 87205 ==

== ENCOUNTER 2023-09-02 16:04 | Outpatient (CLI) | payer MEDICARE ==
--- NOTE | 2023-09-02 17:04 | XRAY Report ---
PROCEDURE: Foot 3+V RT INDICATIONS: DIABETIC FOOT ULCER,TOE TECHNIQUE: 3 views of the foot were acquired. COMPARISON: None. FINDINGS: Bones: No fractures or dislocations. No suspicious bony lesions. No bony erosion. Plantar calcanea l enthesophyte. Soft tissues: No tibiotalar joint effusion. Achilles tendon appears normal. Soft tissue irregulari ty of the third digit. No subcutaneous gas. IMPRESSION: No bony erosion or no subcutaneous gas. Soft tissue irregularity of the third digit, likely correspon ding to the ulcer. Reviewed by: Harry Menendez MD on 09/02/2023 5:02 PM PDT Approved by: Harry Menendez MD on 09/02/2023 5:02 PM PDT Station ID: [id number]
== END 2023-09-02 16:05 | disposition home or self-care (01) ==
LOC: DI.S 16:04
PROVIDERS: ATTEND Emergency Medicine
DX: E11.621 Type 2 diabetes mellitus with foot ulcer (principal); L97.519 Non-pressure chronic ulcer of other part of right foot with unspecified severity

== ENCOUNTER 2023-09-10 14:10 | Outpatient (CLI) | payer MEDICARE ==
[2023-09-10 19:46] LABS: BASOPHILS % (AUTO) 0.4 %; EOSINOPHILS # (AUTO) 0.1 10^3/uL (0.0-0.7); EOSINOPHILS % (AUTO) 1.7 %; LYMPHOCYTES # (AUTO) 1.6 10^3/uL (1.5-3.5); LYMPHOCYTES % (AUTO) 31.5 %; MEAN CORPUSCULAR HEMOGLOBIN 30.6 pg (27.0-31.0); MEAN CORPUSCULAR VOLUME 98.8 fL (81.0-99.0); MEAN PLATELET VOLUME 9.9 fL (7.9-10.8); MONOCYTES # (AUTO) 0.6 10^3/uL (0.0-1.0); MONOCYTES % (AUTO) 11.6 %; NEUTROPHILS # (AUTO) 2.8 10^3/uL (1.5-6.6); NEUTROPHILS % (AUTO) 54.6 %; PLT - PLATELET COUNT 257 10^3/uL (130-450); RED BLOOD COUNT 4.25 10^6/uL (4.20-5.40); RED CELL DISTRIBUTION WIDTH 12.7 % (12.0-15.0); WHITE BLOOD COUNT 5.2 x10^3/uL (4.8-10.8)
[2023-09-10 20:02] LABS: CALCIUM 10.1 mg/dL (8.5-10.3); CREATININE 0.9 mg/dL (0.6-1.3); POTASSIUM 3.9 mmol/L (3.5-4.5); URIC ACID 8.5 mg/dL (2.3-6.6)
== END 2023-09-10 14:11 | disposition home or self-care (01) ==
LOC: LAB.S 14:10
PROVIDERS: ATTEND Emergency Medicine
DX: E11.621 Type 2 diabetes mellitus with foot ulcer (principal); L97.509 Non-pressure chronic ulcer of other part of unspecified foot with unspecified severity; M1A.9XX1 Chronic gout, unspecified, with tophus (tophi)
CPT/HCPCS: 36415; 80048; 84550; 85025

== ENCOUNTER 2023-09-18 14:40 | Outpatient (CLI) | payer MEDICARE ==
[2023-09-18 18:56] LABS: BASOPHILS % (AUTO) 0.5 %; EOSINOPHILS # (AUTO) 0.1 10^3/uL (0.0-0.7); EOSINOPHILS % (AUTO) 1.6 %; HCT - HEMATOCRIT 39.9 % (37.0-47.0); HGB - HEMOGLOBIN 12.5 g/dL (12.0-16.0); LYMPHOCYTES # (AUTO) 1.3 10^3/uL (1.5-3.5); LYMPHOCYTES % (AUTO) 22.6 %; MEAN CORPUSCULAR HEMOGLOBIN 30.9 pg (27.0-31.0); MEAN CORPUSCULAR HGB CONC 31.3 g/dL (32.0-36.0); MEAN CORPUSCULAR VOLUME 98.8 fL (81.0-99.0); MEAN PLATELET VOLUME 10.1 fL (7.9-10.8); MONOCYTES # (AUTO) 0.6 10^3/uL (0.0-1.0); MONOCYTES % (AUTO) 9.7 %; NEUTROPHILS # (AUTO) 3.8 10^3/uL (1.5-6.6); NEUTROPHILS % (AUTO) 65.4 %; PLT - PLATELET COUNT 222 10^3/uL (130-450); RED BLOOD COUNT 4.04 10^6/uL (4.20-5.40); RED CELL DISTRIBUTION WIDTH 12.4 % (12.0-15.0); WHITE BLOOD COUNT 5.8 x10^3/uL (4.8-10.8)
[2023-09-18 19:14] LABS: BUN - BLOOD UREA NITROGEN 28 mg/dL (6-20); CALCIUM 9.7 mg/dL (8.5-10.3); CARBON DIOXIDE - CO2 30 mmol/L (21-32); CHLORIDE 105 mmol/L (101-111); CRP - C-REACTIVE PROTEIN < 0.5 mg/dL (<0.5); GFR - MDRD 54 (>89); GLUCOSE 118 mg/dL (74-104); POTASSIUM 4.4 mmol/L (3.5-4.5); SODIUM 140 mmol/L (135-145)
== END 2023-09-18 14:41 | disposition home or self-care (01) ==
LOC: LAB.S 14:40
PROVIDERS: ATTEND Registered Nurse
DX: L03.115 Cellulitis of right lower limb (principal)
CPT/HCPCS: 36415; 80048; 85025; 86140

== ENCOUNTER 2023-09-22 11:57 | Outpatient (CLI) | payer MEDICARE | END 2023-09-22 11:58 | disposition home or self-care (01) | LOC: LAB.S 11:57 | PROVIDERS: ATTEND Emergency Medicine | DX: I48.21 Permanent atrial fibrillation (principal) | CPT/HCPCS: 36416; 85610 ==

== ENCOUNTER 2023-10-13 13:17 | Outpatient (CLI) | payer MEDICARE | END 2023-10-13 13:18 | disposition home or self-care (01) | LOC: LAB.S 13:17 | PROVIDERS: ATTEND Registered Nurse | DX: Z79.01 Long term (current) use of anticoagulants (principal) | CPT/HCPCS: 36416; 85610 ==

== ENCOUNTER 2023-10-21 13:36 | Outpatient (CLI) | payer MEDICARE | END 2023-10-21 13:37 | disposition home or self-care (01) | LOC: LAB.S 13:36 | PROVIDERS: ATTEND Registered Nurse | DX: Z51.81 Encounter for therapeutic drug level monitoring (principal); Z79.01 Long term (current) use of anticoagulants | CPT/HCPCS: 36416; 85610 ==

== ENCOUNTER 2023-11-18 13:55 | Outpatient (CLI) | payer MEDICARE ==
--- NOTE | 2023-11-19 09:35 | Mammography Report ---
BILATERAL DIGITAL SCREENING MAMMOGRAM 3D/2D WITH EXAGGERATED CC: 11/18/2023 CLINICAL: Routine screening. Comparison is made to exams dated: 11/05/2022 mammogram, 07/19/2020 mammogram - [facility], and 12/15/2018 mammogram - [facility]. Both breasts are almost entirely fatty (category a/<25% glandular tissue). There are benign vascular calcifications in both breasts. No significant masses, calcifications, or other findings are seen in either breast. There has been no significant interval change. IMPRESSION: BENIGN There is no mammographic evidence of malignancy. A 1 year screening mammogram is recommended. Based on the Tyrer Cuzick model (a risk assessment model) the patient's lifetime risk is 2.2% and her 10 year risk is 0.0%. According to the ACR, ACS, and NCCN guidelines, an annual breast MRI exam bryan g with mammogram is recommended if the patient's lifetime risk is 20% or greater. This exam was interpreted at Station ID: [id number]. NOTE: For mammograms, a report in lay terms will be sent to the patient. Approximately 15% of breast malignancies will not be visualized mammographically. In the management of a palpable breast mass, a negative mammogram must not discourage biopsy of a clinically suspicious lesion. Electronically Signed By: Boni saldana/breezy:11/18/2023 15:53:25 letter sent: No_Letter ACR BI-RADS Category 2: Benign Finding(s) 3342F PARENCHYMAL PATTERN: (F) - The breast(s) demonstrate(s) diffuse fatty replacement. BI-RADS CATEGORY: (2) - 2 RECOMMENDATION: (ANNUAL) - Recommend routine annual screening mammography. [id number] 1 year screening LATERALITY: (B)
== END 2023-11-18 13:56 | disposition home or self-care (01) ==
LOC: DI.S 13:55
PROVIDERS: ATTEND Registered Nurse
DX: Z12.31 Encounter for screening mammogram for malignant neoplasm of breast (principal)

== ENCOUNTER 2023-11-25 13:26 | Outpatient (CLI) | payer MEDICARE | END 2023-11-25 13:27 | disposition home or self-care (01) | LOC: LAB.S 13:26 | PROVIDERS: ATTEND Registered Nurse | DX: Z51.81 Encounter for therapeutic drug level monitoring (principal); Z79.01 Long term (current) use of anticoagulants | CPT/HCPCS: 36416; 85610 ==

== ENCOUNTER 2024-01-12 08:15 | Outpatient (CLI) | payer MEDICARE ==
[2024-01-12 14:45] LABS: BASOPHILS % (AUTO) 0.5 %; EOSINOPHILS # (AUTO) 0.1 10^3/uL (0.0-0.7); EOSINOPHILS % (AUTO) 2.3 %; HCT - HEMATOCRIT 39.9 % (37.0-47.0); HGB - HEMOGLOBIN 12.8 g/dL (12.0-16.0); LYMPHOCYTES % (AUTO) 24.5 %; MEAN CORPUSCULAR HEMOGLOBIN 31.8 pg (27.0-31.0); MEAN CORPUSCULAR HGB CONC 32.1 g/dL (32.0-36.0); MEAN CORPUSCULAR VOLUME 99.3 fL (81.0-99.0); MEAN PLATELET VOLUME 10.1 fL (7.9-10.8); MONOCYTES # (AUTO) 0.4 10^3/uL (0.0-1.0); MONOCYTES % (AUTO) 10.9 %; NEUTROPHILS # (AUTO) 2.4 10^3/uL (1.5-6.6); NEUTROPHILS % (AUTO) 61.5 %; PLT - PLATELET COUNT 200 10^3/uL (130-450); RED BLOOD COUNT 4.02 10^6/uL (4.20-5.40); RED CELL DISTRIBUTION WIDTH 13.2 % (12.0-15.0)
[2024-01-12 15:14] LABS: ALBUMIN/GLOBULIN RATIO 1.5 (1.0-2.2); ALKALINE PHOSPHATASE 66 IU/L (42-121); ALT ALANINE AMINOTRANSFERASE 22 IU/L (10-60); AST ASPARTATE AMINOTRANSFERASE 18 IU/L (10-42); BILIRUBIN,TOTAL 0.6 mg/dL (0.2-1.0); BUN - BLOOD UREA NITROGEN 28 mg/dL (6-20); CALCIUM 9.7 mg/dL (8.5-10.3); CARBON DIOXIDE - CO2 27 mmol/L (21-32); CHLORIDE 108 mmol/L (101-111); CHOL/HDL RATIO 2.5 (<4.4); CHOLESTEROL 106 mg/dL; GFR - MDRD 54 (>89); GLUCOSE 97 mg/dL (74-104); HDL CHOLESTEROL 42 mg/dL; LDL CHOLESTEROL,CALCULATED 40 mg/dL; POTASSIUM 4.2 mmol/L (3.5-4.5); SODIUM 139 mmol/L (135-145); TOTAL PROTEIN 6.7 g/dL (6.4-8.9); TRIGLYCERIDES 118 mg/dL; VLDL CHOLESTEROL 24 mg/dL
[2024-01-12 15:22] LABS: MICROALBUM/CREATININE RATIO,UR 12.7 ug/mg (<30.0); MICROALBUMIN,URINE 0.9 mg/dL
[2024-01-12 15:23] LABS: THYROID STIMULATING HORMONE 3.89 uIU/mL (0.34-5.60)
[2024-01-12 19:59] LABS: ESTIMATED AVERAGE GLUCOSE 128 mg/dL (70-100); HEMOGLOBIN A1c% 6.1 % (4.27-6.07)
== END 2024-01-12 08:16 | disposition home or self-care (01) ==
LOC: LAB.S 08:15
PROVIDERS: ATTEND Registered Nurse
DX: Z79.01 Long term (current) use of anticoagulants (principal); E11.9 Type 2 diabetes mellitus without complications; Z13.228 Encounter for screening for other metabolic disorders; Z13.220 Encounter for screening for lipoid disorders; Z13.29 Encounter for screening for other suspected endocrine disorder; Z13.0 Encounter for screening for diseases of the blood and blood-forming organs and certain disorders involving the immune mechanism
CPT/HCPCS: 36415; 80053; 80061; 82043; 82570; 83036; 83721; 84443; 85025; 85610

== ENCOUNTER 2024-02-20 12:20 | Outpatient (CLI) | payer MEDICARE | END 2024-02-20 12:21 | disposition home or self-care (01) | LOC: LAB.S 12:20 | PROVIDERS: ATTEND Registered Nurse | DX: Z51.81 Encounter for therapeutic drug level monitoring (principal); Z79.01 Long term (current) use of anticoagulants | CPT/HCPCS: 36416; 85610 ==